=== PATIENT | male | born 1990 | race Caucasian/White ===

== ENCOUNTER 2017-05-30 11:01 | Emergency (ER) | payer BC ==
[2017-05-30] MEDS ORDERED: NS 0.9% 1000 ML* 1,000 ML IV ONE ×2 (11:56→13:50)
[2017-05-30] MEDS ORDERED: Ondansetron INJ* 2 MG/ML VIAL IV ONE (11:56)
[2017-05-30] MEDS ORDERED: Morphine INJ* 4 MG/ML 1 ML SYRINGE IV ONE (12:24)
[2017-05-30 12:45] LABS: Hematocrit 47 % (42-52); Hemoglobin 16.1 g/dl (14.0-18.0); Mean Corpuscular HGB Conc 35 g/dl (31-36); Mean Corpuscular Hemoglobin 29 pg (27-31); Mean Corpuscular Volume 82 fL (80-94); Mean Platelet Volume 8 um3 (7.4-10.4); Red Blood Count 5.65 10^6/ul (4.0-5.4); Red Cell Distribution Width 14 % (10.5-15)
[2017-05-30] MEDS ORDERED: LORazepam INJ* 2 MG/ML 1 ML VIAL IV PUSH ONE (13:12)
[2017-05-30 13:34] LABS: Albumin 4.1 g/dL (3.2-5.2); BUN/Creatinine Ratio 16.7 (8-20); C Reactive Protein 2.18 mg/L (< 5.00); Calcium 9.6 mg/dL (8.6-10.3); EGFR Non-African American 121.3 (>60); Globulin 3.7 g/dL (2-4); Potassium 3.7 mmol/L (3.5-5.0); Total Bilirubin 0.7 mg/dL (0.2-1.0); Total Protein 7.8 g/dL (6.4-8.9)
[2017-05-30 15:06] VITALS: BP 143/86
--- NOTE | 2017-05-30 15:07 | ED ---
Zainab Sarabia Edward, scribed for Madhuri Travis MD on 05/30/17 at 1217 . Complex/Multi-Sys Presentation - HPI Summary HPI Summary: 27 y/o male presents to ED c/o vomiting starting at 06:00 this morning. The patient has vomited many times all day. Associated sx: diffuse ABD pain, subjective fever. Denies rectal bleeding. PMHx Crohn's disease. - History Of Current Complaint Chief Complaint: EDAbdPain Time Seen by Provider: 05/30/17 11:57 Hx Obtained From: Patient Onset/Duration: Sudden Onset, Lasting Hours - 06:00 this morning Timing: Intermittent, Lasting: - Vomiting Associated Signs And Symptoms: Positive: Nausea, Vomiting - Allergies/Home Medications Allergies/Adverse Reactions: Allergies Allergy/AdvReac Type Severity Reaction Status Date / Time No Known Allergies Allergy Verified 05/30/17 13:18 PMH/Surg Hx/FS Hx/Imm Hx Previously Healthy: No GI History: Reports: Hx Crohn's Disease Psychiatric History: Reports: Hx Depression Infectious Disease History: Denies: Traveled Outside the [place] in Last 30 Days - Family History Known Family History: Positive: Unknown - Patient is adopted - Social History Lives: With Family Alcohol Use: None Hx Substance Use: Yes Substance Use Type: Reports: Marijuana - Daily Hx Tobacco Use: No Smoking Status (MU): Never Smoked Tobacco Review of Systems Positive: Fever - Subjective Eyes: Negative ENT: Negative Cardiovascular: Negative Respiratory: Negative Positive: Abdominal Pain, Vomiting, Nausea, Other - No rectal bleeding Genitourinary: Negative Musculoskeletal: Negative Skin: Negative Neurological: Negative Psychological: Normal All Other Systems Reviewed And Are Negative: Yes Physical Exam Triage Information Reviewed: Yes Vital Signs On Initial Exam: Initial Vitals Temp Pulse Resp BP Pulse Ox 97.5 F 68 16 159/93 100 05/30/17 11:12 05/30/17 11:12 05/30/17 11:12 05/30/17 11:12 05/30/17 11:12 Vital Signs Reviewed: Yes Appearance: Positive: No Pain Distress, Ill-Appearing - Mildly Skin: Positive: Warm, Skin Color Reflects Adequate Perfusion, Dry Eyes: Positive: EOMI, TAMMY ENT: Positive: Pharynx normal, TMs normal Neck: Positive: Supple, Nontender Respiratory/Lung Sounds: Positive: Clear to Auscultation, Breath Sounds Present. Negative: Rales, Rhonchi, Wheezes Cardiovascular: Positive: RRR, Other - No gallop. Negative: Murmur, Rub Abdomen Description: Positive: Soft, Other: - Diffuse ABD pain. No rebound. Negative: Distended, Guarding Bowel Sounds: Positive: Hypoactive Musculoskeletal: Positive: Strength/ROM Intact. Negative: Edema Left, Edema Right Neurological: Positive: Sensory/Motor Intact, Alert, Oriented to Person Place, Time, CN Intact II-III Psychiatric: Positive: Affect/Mood Appropriate Diagnostics - Vital Signs Vital Signs Temp Pulse Resp BP Pulse Ox 05/30/17 11:12 97.5 F 68 16 159/93 100 - Laboratory Lab Results: Lab Results 05/30/17 05/30/17 05/30/17 Range/Units 12:30 12:30 12:30 WBC 14.0 H (3.5-10.8) 10^3/ul RBC 5.65 H (4.0-5.4) 10^6/ul Hgb 16.1 (14.0-18.0) g/dl Hct 47 (42-52) % MCV 82 (80-94) fL MCH 29 (27-31) pg MCHC 35 (31-36) g/dl RDW 14 (10.5-15) % Plt Count 288 (150-450) 10^3/ul MPV 8 (7.4-10.4) um3 Neut % (Auto) 92.0 H (38-83) % Lymph % (Auto) 4.7 L (25-47) % [place] % (Auto) 3.0 (1-9) % Eos % (Auto) 0 (0-6) % Baso % (Auto) 0.3 (0-2) % Absolute Neuts (auto) 12.9 H (1.5-7.7) 10^3/ul Absolute Lymphs (auto) 0.7 L (1.0-4.8) 10^3/ul Absolute Monos (auto) 0.4 (0-0.8) 10^3/ul Absolute Eos (auto) 0 (0-0.6) 10^3/ul Absolute Basos (auto) 0 (0-0.2) 10^3/ul Absolute Nucleated RBC 0.02 10^3/ul Nucleated RBC % 0.1 Sodium 132 L (133-145) mmol/L Potassium 3.7 (3.5-5.0) mmol/L Chloride 98 L (101-111) mmol/L Carbon Dioxide 21 L (22-32) mmol/L Anion Gap 13 H (2-11) mmol/L BUN 13 (6-24) mg/dL Creatinine 0.78 (0.67-1.17) mg/dL Est GFR ( Amer) 156.0 (>60) Est GFR (Non-Af Amer) 121.3 (>60) BUN/Creatinine Ratio 16.7 (8-20) Glucose 140 H (70-100) mg/dL Lactic Acid 2.0 (0.5-2.0) mmol/L Calcium 9.6 (8.6-10.3) mg/dL Magnesium Pending Total Bilirubin 0.70 (0.2-1.0) mg/dL AST 15 (13-39) U/L ALT 11 (7-52) U/L Alkaline Phosphatase 83 (34-104) U/L C-Reactive Protein 2.18 (< 5.00) mg/L Total Protein 7.8 (6.4-8.9) g/dL Albumin 4.1 (3.2-5.2) g/dL Globulin 3.7 (2-4) g/dL Albumin/Globulin Ratio 1.1 (1-3) Lipase Pending Result Diagrams: 05/30/17 12:30 05/30/17 12:30 Lab Statement: Any lab studies that have been ordered have been reviewed, and results considered in the medical decision making process. Complex Multi-Symp Course/Dx Course Of Treatment: 27 yo male with vomiting and abd pain - Diagnoses Provider Diagnoses: Vomiting Discharge - Discharge Plan Condition: Stable Disposition: HOME Prescriptions: Ondansetron ODT TAB* [Zofran 4 MG Odt TAB*] 4 mg PO Q8H PRN #14 tab.odt MDD 3 PRN Reason: Nausea The documentation as recorded by the Zainab okeefe Edward accurately reflects the service I personally performed and the decisions made by , Madhuri Travis MD.
[2017-05-30 18:11] LABS: Magnesium 1.5 mg/dL (1.9-2.7)
== END 2017-05-30 15:25 | disposition home or self-care (01) ==
LOC: ED 11:01
DX: R11.2 Nausea with vomiting, unspecified (principal)
CPT/HCPCS: 36415; 80053; 83605; 83690; 83735; 85025; 86140; 96374; 96375; 99283; J2060; J2270; J2405

== ENCOUNTER 2019-05-17 09:14 | Emergency (ER) | payer BC, OTHER ==
[2019-05-17] MEDS ORDERED: Ondansetron INJ* 2 MG/ML VIAL IV ONE (09:27)
[2019-05-17] MEDS ORDERED: NS 0.9% 1000 ML** 2,000 ML IV ONE (09:27)
[2019-05-17] MEDS ORDERED: Ketorolac INJ* 30 MG/ML 1 ML VIAL IV PUSH ONE (09:28)
--- NOTE | 2019-05-17 09:34 | ED ---
GI/ HPI - HPI Summary HPI Summary: 29-year-old male presents with vomiting yesterday. He states he has history of cyclic vomiting syndrome and this feels the same. He has not been able to keep anything down. He did not take anything for his symptoms. He smoked marijuana last night. He denies any diarrhea. No blood in his stool. Admits to diffuse abdominal pain. No chest pain shortness breath. No cough. No sore throat. No fevers. No other symptoms. He also states is having back pain. has history of back pain this is just more intense. no loss of bowel or bladder. no saddle anaesthesia. - History of Current Complaint Chief Complaint: EDNauseaVomitDiarrh Time Seen by Provider: 05/17/19 09:22 Stated Complaint: VOMITING PER PT Pain Intensity: 8 - Allergy/Home Medications Allergies/Adverse Reactions: Allergies Allergy/AdvReac Type Severity Reaction Status Date / Time No Known Allergies Allergy Verified 05/17/19 09:41 PMH/Surg Hx/FS Hx/Imm Hx Endocrine/Hematology History: Denies: Hx Anticoagulant Therapy Respiratory History: Denies: Hx Asthma GI History: Reports: Hx Crohn's Disease Psychiatric History: Reports: Hx Depression Infectious Disease History: No Infectious Disease History: Denies: Traveled Outside the [place] in Last 30 Days - Family History Known Family History: Positive: Unknown - Patient is adopted - Social History Alcohol Use: None Hx Substance Use: Yes Substance Use Type: Reports: Marijuana Substance Use Comment - Amount & Last Used: daily Hx Tobacco Use: No Smoking Status (MU): Never Smoked Tobacco Review of Systems Negative: Fever Negative: Chest Pain Negative: Shortness Of Breath Positive: Abdominal Pain, Vomiting, Nausea. Negative: Diarrhea All Other Systems Reviewed And Are Negative: Yes Physical Exam Triage Information Reviewed: Yes Vital Signs On Initial Exam: Initial Vitals Pulse BP Pulse Ox 58 155/107 98 05/17/19 09:22 05/17/19 09:22 05/17/19 09:22 Vital Signs Reviewed: Yes Appearance: Positive: Well-Appearing Skin: Positive: Warm, Dry Head/Face: Positive: Normal Head/Face Inspection Eyes: Positive: Normal, EOMI, TAMMY, Conjunctiva Clear ENT: Positive: Normal ENT inspection, Pharynx normal, TMs normal Respiratory/Lung Sounds: Positive: Clear to Auscultation, Breath Sounds Present Cardiovascular: Positive: Normal, RRR Abdomen Description: Positive: Soft, Other: - mild diffuse abd tenderness Bowel Sounds: Positive: Present Musculoskeletal: Positive: Strength/ROM Intact - back with pain, Other - tenderness lower back, neg SLR, good pulses, normal sensation Neurological: Positive: Normal Psychiatric: Positive: Normal Diagnostics - Vital Signs Vital Signs Temp Pulse Resp BP Pulse Ox 05/17/19 09:23 0 F 58 20 155/107 98 05/17/19 09:22 58 155/107 98 - Laboratory Result Diagrams: 05/17/19 09:37 05/17/19 09:37 Lab Statement: Any lab studies that have been ordered have been reviewed, and results considered in the medical decision making process. - Radiology back Radiology Interpretation Completed By: Radiologist Summary of Radiographic Findings: IMPRESSION: 1. FINDINGS SUGGESTIVE OF A MILD CHRONIC COMPRESSION FRACTURE OF THE L2 VERTEBRAL BODY. 2. MILD DEGENERATIVE DISC DISEASE. Re-Evaluation - Re-Evaluation First Eval Re-Evaluation Time: 10:16 Comment: patient is now sitting still enough to exam back, has diffuse lower back tenderness, neg SLR, normal sensation Second Eval Re-Evaluation Time: 11:34 Comment: feeling better GIGU Course/Dx - Course Course Of Treatment: 29-year-old male presents with vomiting yesterday. He states he has history of cyclic vomiting syndrome and this feels the same. He has not been able to keep anything down. He did not take anything for his symptoms. He smoked marijuana last night. He denies any diarrhea. No blood in his stool. Admits to diffuse abdominal pain. No chest pain shortness breath. No cough. No sore throat. No fevers. No other symptoms. On exam patient is vomiting. diffuse abdominal pain. Gave fluids Toradol and Zofran and feeling better but back pain persists. wbc 18 likely due to vomiting. lactic elevated. magnesium low so gave supplement. potassium normal. crp normal. patient states back has also been hurting. tenderness in lower back. neurovascular intact. xray shows chronic L2 fx. gave ativan and decadron and back pain improved. patient is not sleepy. will discharge with steriod and zofran. told to est care with primary to follow up. patient understand and agrees with plan. - Diagnoses Differential Diagnoses - Male: Gastroenteritis (Viral), Urinary Tract Infection , Vomiting Provider Diagnoses: Vomiting, Back pain Discharge - Sign-Out/Discharge Documenting (check all that apply): Patient Departure Patient Received Moderate/Deep Sedation with Procedure: No - Discharge Plan Condition: Good Disposition: HOME Prescriptions: methylPREDNISolone [Medrol Dosepak 4 MG*] 4 mg PO .SEE [employer]ATHLE[employer]STRUCTION #1 packet Ondansetron ODT TAB* [Zofran 4 MG Odt TAB*] 4 mg PO Q6H PRN #20 tab.odt PRN Reason: Nausea Patient Education Materials: Acute Nausea and Vomiting (ED) Referrals: Non Staff,Doctor [Medical Doctor] - [facility] [Outside] Additional Instructions: Can take Zofran every 6 hours as needed for nausea follow direction for steroids on package Drink small amounts of fluid as tolerated When able to eat follow BRAT diet: Bananas, rice, applesauce, toast Take ibuprofen or Tylenol for pain as needed every 6 hours Follow up with primary within 5 days Return to ED if develop any new or worsening symptoms - Billing Disposition and Condition Condition: GOOD Disposition: Home
[2019-05-17] MEDS ORDERED: Ketorolac INJ* 15 MG/ML 1 ML VIAL IV PUSH ONE (09:48)
[2019-05-17 09:51] LABS: ABS Basophils 0.1 10^3/ul (0-0.2); ABS Lymphocytes 2.1 10^3/ul (1.0-4.8); ABS Monocytes 0.8 10^3/ul (0-0.8); ABS Neutrophils 15.2 10^3/ul (1.5-7.7); Eosinophil % 0.2 %; Hematocrit 46 % (42-52); Hemoglobin 15.9 g/dL (14.0-18.0); Lymphocyte % 11.5 %; Mean Corpuscular HGB Conc 34 g/dL (31-36); Mean Corpuscular Hemoglobin 28 pg (27-31); Mean Corpuscular Volume 82 fL (80-94); Mean Platelet Volume 7.8 fL (7.4-10.4); Nucleated Red Blood Cells % 0.1; Platelet Count 323 10^3/uL (150-450); Red Blood Count 5.66 10^6 /uL (4.18-5.48); Red Cell Distribution Width 14 % (10-15); White Blood Count 18.3 10^3/uL (3.5-10.8)
[2019-05-17 10:08] LABS: Albumin/Globulin Ratio 1.1 (1-3); BUN/Creatinine Ratio 15.4 (8-20); C Reactive Protein 1.84 mg/L (<8.01); Calcium 9.4 mg/dL (8.6-10.3); EGFR African American 120.9 (>60); EGFR Non-African American 99.9 (>60); Globulin 3.7 g/dL (2-4); Magnesium 1.5 mg/dL (1.9-2.7); Potassium 3.5 mmol/L (3.5-5.0); Total Bilirubin 0.6 mg/dL (0.2-1.0); Total Protein 7.7 g/dL (6.4-8.9)
[2019-05-17] MEDS ORDERED: LORazepam INJ* 2 MG/ML 1 ML VIAL IV PUSH ONE (10:14)
[2019-05-17] MEDS ORDERED: Lorazepam PYXIS KEY PRN (10:14)
[2019-05-17] MEDS ORDERED: Dexamethasone IV* 4 MG/ML 1 ML (4 MG) IV SLOW PU ONE (10:15)
[2019-05-17] MEDS ORDERED: Magnesium Chloride EC TAB* 64 MG PO ONE (10:23)
[2019-05-17 11:36] VITALS: BP 145/99
== END 2019-05-17 11:41 | disposition home or self-care (01) ==
LOC: ED 09:14 → SUPCPDRO 09:14 → ED 11:41
DX: R11.10 Vomiting, unspecified (principal); M54.9 Dorsalgia, unspecified; M51.36 Other intervertebral disc degeneration, lumbar region
CPT/HCPCS: 36415; 72110; 80053; 83605; 83690; 83735; 85025; 86140; 96361; 96374; 96375; 96376; 99283; A9270-GY; J1100; J2060

== ENCOUNTER 2019-05-17 16:30 | Emergency (ER) | payer OTHER ==
[2019-05-17] MEDS ORDERED: Ketorolac INJ* 30 MG/ML 1 ML VIAL IV PUSH ONE (19:33)
[2019-05-17] MEDS ORDERED: Metoclopramide IV* 5 MG/ML 2 ML VIAL IV SLOW PU ONE (19:33)
[2019-05-17] MEDS ORDERED: NS 0.9% 1000 ML** 2,000 ML IV ONE (19:33)
[2019-05-17] MEDS ORDERED: Pantoprazole IV* 40 MG IV ONE (19:34)
[2019-05-17] MEDS ORDERED: diPHENhydraMINE IV* 50 MG/ML 1 ml VIAL (BENADRYL) IV ONE (19:34)
--- NOTE | 2019-05-17 19:36 | ED ---
GI/ HPI - HPI Summary HPI Summary: This patient is a 29 year old M presenting to [facility] accompanied by a female adult nurse practitioner with a chief complaint of vomiting since 0600 today. Per adult nurse practitioner, pt vomits everything he eats or drinks. Pt states he vomits like this once a year. Pt notes his PCP discontinued his Zofran, but he took some today with no relief. He says he does not feel any better. The patient rates the pain 4/10 in severity. Symptoms aggravated by consuming food and liquids. Symptoms alleviated by nothing. - History of Current Complaint Chief Complaint: EDNauseaVomitDiarrh Time Seen by Provider: 05/17/19 19:09 Stated Complaint: VOMITING PER PT Hx Obtained From: Patient, Other: - female adult nurse practitioner Onset/Duration: Started Hours Ago - 14 Timing: Constant, Lasting Hours - 14 Severity: Moderate Current Severity: Moderate Pain Intensity: 4 Associated Signs and Symptoms: Positive: Vomiting Aggravating Factor(s): Food, Liquids Alleviating Factor(s): Nothing - Allergy/Home Medications Allergies/Adverse Reactions: Allergies Allergy/AdvReac Type Severity Reaction Status Date / Time No Known Allergies Allergy Verified 05/17/19 09:41 PMH/Surg Hx/FS Hx/Imm Hx Previously Healthy: No Endocrine/Hematology History: Denies: Hx Anticoagulant Therapy Respiratory History: Denies: Hx Asthma GI History: Reports: Hx Crohn's Disease Psychiatric History: Reports: Hx Depression - Surgical History Surgical History: None Infectious Disease History: No Infectious Disease History: Denies: Traveled Outside the [place] in Last 30 Days - Family History Known Family History: Positive: Unknown - Patient is adopted - Social History Alcohol Use: None Hx Substance Use: Yes Substance Use Type: Reports: Marijuana Substance Use Comment - Amount & Last Used: daily Hx Tobacco Use: No Smoking Status (MU): Never Smoked Tobacco Do You Chew or Dip Tobacco: No Have You Chewed or Dipped Tobacco in the LAST YEAR: No Have You Smoked in the Last Year: No Review of Systems Negative: Fever Positive: Vomiting - since 0600 today All Other Systems Reviewed And Are Negative: Yes Physical Exam - Summary Physical Exam Summary: VITAL SIGNS: Reviewed. GENERAL: Patient is a well-developed and nourished MALE who is lying comfortable in the stretcher. Patient is not in any acute respiratory distress. HEAD AND FACE: No signs of trauma. No ecchymosis, hematomas or skull depressions. No sinus tenderness. EYES: PERRLA, EOMI x 2, No injected conjunctiva, no nystagmus. EARS: Hearing grossly intact. Ear canals and tympanic membranes are within normal limits. MOUTH: Oropharynx within normal limits. NECK: Supple, trachea is midline, no adenopathy, no JVD, no carotid bruit, no c- spine tenderness, neck with full ROM CHEST: Symmetric, no tenderness at palpation LUNGS: Clear to auscultation bilaterally. No wheezing or crackles. CVS: Regular rate and rhythm, S1 and S2 present, no murmurs or gallops appreciated. ABDOMEN: Soft, non-tender. No signs of distention. No rebound no guarding, and no masses palpated. Bowel sounds are normal. EXTREMITIES: FROM in all major joints, no edema, no cyanosis or clubbing. NEURO: Alert and oriented x 3. No acute neurological deficits. Speech is normal and follows commands. SKIN: Dry and warm Triage Information Reviewed: Yes Vital Signs On Initial Exam: Initial Vitals Temp Pulse Resp BP Pulse Ox 98.4 F 69 18 158/115 96 05/17/19 16:53 05/17/19 16:53 05/17/19 16:53 05/17/19 16:53 05/17/19 16:53 Vital Signs Reviewed: Yes Diagnostics - Vital Signs Vital Signs Temp Pulse Resp BP Pulse Ox 05/17/19 16:53 98.4 F 69 18 158/115 96 - Laboratory Result Diagrams: 05/17/19 19:49 05/17/19 19:49 Lab Statement: Any lab studies that have been ordered have been reviewed, and results considered in the medical decision making process. Re-Evaluation - Re-Evaluation First Eval Re-Evaluation Time: 21:06 Change: Improved Comment: pt feels better and requested to leave GIGU Course/Dx - Course Course Of Treatment: This patient is a 29 year old M presenting to [facility] accompanied by a female adult nurse practitioner with a chief complaint of vomiting since 0600 today. Per adult nurse practitioner, pt vomits everything he eats or drinks. Pt states he vomits like this once a year. Pt notes his PCP discontinued his Zofran, but he took some today with no relief. He says he does not feel any better. The patient rates the pain 4/10 in severity. Symptoms aggravated by consuming food and liquids. Symptoms alleviated by nothing. Physical exam shows no remarkable findings. Lab results show WBC 18.1, absolute neuts 16.8, absolute lymphs 0.7, chloride 99, glucose 141. During the ED course, the pt was given Valium, Benadryl, Toradol, Reglan, Protonix, and fluids. Dx is cyclical vomiting. Pt is agreeable to discharge. Pt was told to follow up with a primary care provider within 1-2 days and to return to the ED for any new or worsening symptoms. - Diagnoses Provider Diagnoses: Cyclical vomiting Discharge - Sign-Out/Discharge Documenting (check all that apply): Patient Departure - discharge Patient Received Moderate/Deep Sedation with Procedure: No - Discharge Plan Condition: Stable Disposition: HOME Prescriptions: Metoclopramide TAB* [Reglan TAB*] 10 mg PO Q6H PRN #20 tab PRN Reason: Nausea/Vomiting Patient Education Materials: Cyclic Vomiting Syndrome (ED) Referrals: No Primary Care Phys,NOPCP [Primary Care Provider] - [facility] [Outside] - 1 Day Additional Instructions: Follow up with a primary care provider within 1-2 days. Return to the ED for any new or worsening symptoms. - Attestation Statements Document Initiated by Scribe: Yes Documenting Scribe: Gómez Butler Provider For Whom Tamaraibabdulaziz is Documenting (Include Credential): Dr. Nanci Welch MD Scribe Attestation: Gómez Sarabia, scribed for Dr. Nanci Welch MD on 05/17/19 at 2111. Status of Scribe Document: Ready
[2019-05-17 19:59] LABS: ABS Lymphocytes 0.7 10^3/ul (1.0-4.8); ABS Monocytes 0.6 10^3/ul (0-0.8); ABS Neutrophils 16.8 10^3/ul (1.5-7.7); ABS Nucleated RBC 0.1 10^3/ul; Hematocrit 43 % (42-52); Hemoglobin 15.2 g/dL (14.0-18.0); Mean Corpuscular HGB Conc 36 g/dL (31-36); Mean Corpuscular Hemoglobin 29 pg (27-31); Mean Corpuscular Volume 80 fL (80-94); Mean Platelet Volume 7.8 fL (7.4-10.4); Nucleated Red Blood Cells % 0.7; Platelet Count 277 10^3/uL (150-450); Red Blood Count 5.32 10^6 /uL (4.18-5.48); Red Cell Distribution Width 14 % (10-15); White Blood Count 18.1 10^3/uL (3.5-10.8)
[2019-05-17 20:16] LABS: Albumin/Globulin Ratio 1.2 (1-3); BUN/Creatinine Ratio 10.5 (8-20); C Reactive Protein 4.4 mg/L (<8.01); Calcium 9.1 mg/dL (8.6-10.3); EGFR African American 148.9 (>60); Globulin 3.4 g/dL (2-4); Potassium 3.6 mmol/L (3.5-5.0); Total Bilirubin 0.6 mg/dL (0.2-1.0); Total Protein 7.4 g/dL (6.4-8.9)
[2019-05-17] MEDS ORDERED: Diazepam SYRINGE* 5 MG/ML 2 ML SYRINGE (10 MG total) IV ONE (20:43)
[2019-05-17] MEDS ORDERED: Diazepam INJ (NF) 5 MG/ML 10 ML VIAL (50 MG TOTAL) IV ONE (21:00)
[2019-05-17 21:19] VITALS: BP 168/90
== END 2019-05-17 21:18 | disposition home or self-care (01) ==
LOC: ED 16:30
DX: G43.A0 Cyclical vomiting, in migraine, not intractable (principal); K50.90 Crohn's disease, unspecified, without complications; F32.9 Major depressive disorder, single episode, unspecified
CPT/HCPCS: 36415; 80053; 82150; 83690; 85025; 86140; 96374; 96375; 99282; J1200; J1885; J2765; J3360